=== PATIENT | female | born 2000 | race Caucasian/White ===

== ENCOUNTER 2023-05-27 14:11 | Outpatient (REF) | payer BC, SELFPAY ==
--- NOTE | ~2023-05-27 | US_ITS ---
EXAMINATION: US RETROPERITONEAL COMPLETE (RENAL) CLINICAL INFORMATION: Left flank pain, recent right flank pain. COMPARISON: None available. TECHNIQUE: Real-time imaging of the kidneys and bladder. FINDINGS: RIGHT KIDNEY: 9.9 x 3.6 x 6 cm (SAG x AP x TRV). The kidney is normal in size, contour, and echogenicity. Renal cortical thickness is normal. No renal calculi or focal parenchymal lesions. There is mild hydronephrosis. LEFT KIDNEY: 11 x 4.9 x 4.9 cm (SAG x AP x TRV). The kidney is normal in size, contour, and echogenicity. Renal cortical thickness is normal. No calculi or focal parenchymal lesions. No hydronephrosis. BLADDER: Well distended and normal. Bilateral ureteral jets are demonstrated. Prevoid bladder volume is 579 mL. There is no postvoid residual. There is a small amount of debris noted within the urinary bladder. US/US retroperitoneal comp IMPRESSION: 1. There is mild right hydronephrosis. No left hydronephrosis is seen. 2. No renal mass or calculus is seen. 3. There is mild debris within the urinary bladder, for which correlation with the patient's most recent urinalysis is recommended.
== END 2023-05-27 14:12 | disposition home or self-care (01) ==
LOC: HO.UMASIMG 14:11
PROVIDERS: Visit Provider Nurse Practitioner Women's Health
DX: M54.50 Low back pain, unspecified (principal)
CPT/HCPCS: 76770